=== PATIENT | female | born 1970 | race Caucasian/White ===

== ENCOUNTER 2016-12-29 05:35 | Inpatient (IN) | payer OTHER ==
[2016-12-29] VITALS (8 sets, daily range): BP systolic 120–126
[~2016-12-29] VITALS: Ht 170.2 cm; Wt 95.3 kg
[2016-12-29] MEDS ORDERED: SERT50TA PO (06:40)
[2016-12-29] MEDS ORDERED: LEVO75TA7 PO (06:40)
[2016-12-29] MEDS ORDERED: KETOROLAC TROMETHAMINE 30 MG VIAL IVP ONE (07:25)
[2016-12-29] MEDS ORDERED: ONDANSETRON HCL 4 MG/2 ML VIAL IVP ONE (07:25)
[2016-12-29] MEDS ORDERED: CEFAZOLIN 2 GM IVPB PREMIX 50 ML IV ONE (07:25)
[2016-12-29] MEDS ORDERED: PROPOFOL 200MG/ 20ML VIAL (DIPRIVAN) IV ONE (07:25)
[2016-12-29] MEDS ORDERED: fentaNYL CITRATE 250 MCG/5 ML AMP IV ONE (08:25)
[2016-12-29] MEDS ORDERED: fentaNYL CITRATE/PF 100 MCG/2 ML AMP IVP ONE (08:25)
[2016-12-29] MEDS ORDERED: MIDAZOLAM HCL 5 MG/5 ML VIAL IVP ONE (08:25)
[2016-12-29] MEDS ORDERED: ROCURONIUM BROMIDE 10 MG/ML (ZEMURON) IV ONE (08:25)
[2016-12-29] MEDS ORDERED: NS IRRIG SOLN 1000 ML IR ONE (08:25)
[2016-12-29] MEDS ORDERED: LR 1,000 ML IV.SOLN IV ONE (08:25)
[2016-12-29] MEDS ORDERED: MEPERIDINE HCL/PF 100 MG/ML AMP IM ONE (08:25)
[2016-12-29] MEDS ORDERED: SEVOFLURANE 15 MIN GAS INH ONE (08:25)
[2016-12-29] MEDS ORDERED: LR 1,000 ML IV SCH (08:30)
[2016-12-29] MEDS ORDERED: HYDROmorphone 2 MG/ML VIAL IVP PRN (08:30)
[2016-12-29] MEDS ORDERED: METOCLOPRAMIDE HCL 10 MG/2 ML VIAL IVP PRN (08:30)
[2016-12-29] MEDS ORDERED: HYDROmorphone 1 MG INJ. 1 MG/ML AMPUL IVP PRN ×2 (08:30)
[2016-12-29] MEDS ORDERED: DOCUSATE SODIUM 100 MG CAPSULE PO PRN (10:15)
[2016-12-29] MEDS ORDERED: KETOROLAC TROMETHAMINE 30 MG VIAL IVP PRN (10:15)
[2016-12-29] MEDS ORDERED: TEMAZEPAM 15 MG CAPSULE PO PRN (10:15)
[2016-12-29] MEDS ORDERED: BISACODYL 10 MG/SUPPOSITORY RC PRN (10:15)
[2016-12-29] MEDS ORDERED: SIMETHICONE 80 MG TAB.CHEW PO PRN (10:15)
[2016-12-29] MEDS ORDERED: SENNOSIDES/DOCUSATE SODIUM 1 TAB TABLET(SENOKOT-S) PO PRN (10:15)
[2016-12-29] MEDS ORDERED: HYDROmorphone 2 MG/ML VIAL ONE (10:54)
[2016-12-29] MEDS ORDERED: METOCLOPRAMIDE HCL 10 MG/2 ML VIAL ONE (10:54)
[2016-12-29] MEDS: LR 1,000 ML IV SCH (11:41)
[2016-12-29] MEDS: ONDANSETRON HCL 4 MG/2 ML VIAL IVP PRN (13:38)
[2016-12-29] MEDS: OXYCODONE/ACETAMINOPHEN 5-325 TABLET PO PRN (20:13)
[2016-12-29] MEDS: HYDROmorphone 2 MG/ML VIAL IVP PRN (21:18)
[2016-12-30] MEDS: LR 1,000 ML IV SCH (01:02)
[2016-12-30] MEDS: HYDROmorphone 2 MG/ML VIAL IVP PRN (01:03)
[2016-12-30 01:10] VITALS: BP_SYST 106
[2016-12-30 03:50] VITALS: BP_SYST 102
[2016-12-30] MEDS: IBUPROFEN 600 MG TABLET PO SCH ×3 (05:55→18:23)
[2016-12-30 06:26] LABS: BASOPHILS % (AUTO) 0.1 % (0.0-2.0); EOSINOPHILS % (AUTO) 0.1 % (0.0-4.0); HEMATOCRIT 25.3 % (36-48); HEMOGLOBIN 8.5 g/dL (12.0-16.0); LYMPHOCYTES # (AUTO) 0.9 K/uL (1.0-5.5); LYMPHOCYTES % (AUTO) 15.5 % (20.5-51.5); MEAN CORPUSCULAR HEMOGLOBIN 30 pg (27-31); MEAN CORPUSCULAR HGB CONC 34 % (32-36); MEAN CORPUSCULAR VOLUME 88 fL (79.0-98.0); MONOCYTES # (AUTO) 0.5 K/uL (0.0-1.0); MONOCYTES % (AUTO) 7.6 % (1.7-9.3); NEUTROPHILS # (AUTO) 4.7 K/uL (1.8-7.7); NEUTROPHILS % (AUTO) 76.7 % (40.0-70.0); PLATELET COUNT (AUTO) 237 K/uL (130-430); RED BLOOD CELL COUNT(AUTO) 2.87 MIL/uL (4.2-6.2); WHITE BLOOD COUNT (AUTO) 6.1 K/uL (4.8-10.8)
[2016-12-30 08:00] VITALS: BP_SYST 106
[2016-12-30] MEDS: OXYCODONE/ACETAMINOPHEN 5-325 TABLET PO PRN ×3 (08:09→19:55)
[2016-12-30] MEDS: ONDANSETRON HCL 4 MG/2 ML VIAL IVP PRN (09:26)
[2016-12-30] MEDS ORDERED: HYDROmorphone 2 MG TAB PO PRN (10:00)
[2016-12-30 12:59] VITALS: BP_SYST 118
[2016-12-30 16:58] VITALS: BP_SYST 121
[2016-12-30 19:50] VITALS: BP_SYST 111
[2016-12-31] MEDS: IBUPROFEN 600 MG TABLET PO SCH ×2 (00:10→06:00)
[2016-12-31 00:12] VITALS: BP_SYST 123
[2016-12-31 04:13] VITALS: BP_SYST 101
[2016-12-31] MEDS ORDERED: LEVOTHYROXINE SODIUM 0.075 MG TABLET PO SCH (07:00)
[2016-12-31] MEDS: OXYCODONE/ACETAMINOPHEN 5-325 TABLET PO PRN (07:03)
[2016-12-31 08:00] VITALS: BP_SYST 110
[2016-12-31] MEDS ORDERED: IBUPROFEN 600 MG TABLET PO ONE (08:15)
[2016-12-31] MEDS ORDERED: SERTRALINE HCL 50 MG TABLET PO SCH (09:00)
[2016-12-31 10:30] VITALS: BP_SYST 110
== END 2016-12-31 11:10 | disposition home or self-care (01) | DRG 743 ==
LOC: SMU 05:35
PROVIDERS: ADMIT Obstetrics & Gynecology; ATTEND Obstetrics & Gynecology
PROC: 0UTC0ZZ Resection of Cervix, Open Approach (ICD-10-PCS; 2016-12-29)
PROC: 0UT70ZZ Resection of Bilateral Fallopian Tubes, Open Approach (ICD-10-PCS; 2016-12-29)
PROC: 0UT90ZZ Resection of Uterus, Open Approach (ICD-10-PCS; principal; 2016-12-29 07:30)
DX: D25.9 Leiomyoma of uterus, unspecified (principal); E03.9 Hypothyroidism, unspecified; F41.9 Anxiety disorder, unspecified; N93.9 Abnormal uterine and vaginal bleeding, unspecified
CPT/HCPCS: 36415; 85025; 86886; 86900; 86901; 87081; 88307; 94010; J0690; J1170; J1885; J2175; J2250; J2405; J2704; J2765; J3010; J7120